=== PATIENT | male | born 1980 | race Caucasian/White ===

== ENCOUNTER 2020-08-30 07:35 | Outpatient (REF) | payer OTHER, SELFPAY ==
[2020-08-30 11:18] LABS: Alanine Aminotransferase 33 U/L (0-40); Alkaline Phosphatase 54 U/L (39-117); Anion Gap 13 (12-20); Aspartate Amino Transferase 19 U/L (5-37); Bilirubin Total 0.6 mg/dL (0.0-1.0); Blood Urea Nitrogen 16 mg/dL (9-16); Calcium 9.3 mg/dL (8.4-10.2); Carbon Dioxide 28 mmol/L (22-29); Chloride 106 mmol/L (96-108); Cholesterol 176 mg/dL; Estimated Glomerular Filt Rate > 60; Glucose Fasting 112 mg/dL (60-99); HDL Cholesterol 33 mg/dL; LDL Cholesterol Calculated 101 mg/dl; Potassium 4.6 mmol/L (3.3-5.1); Sodium 142 mmol/L (135-145); Total Protein 7.5 g/dL (6.5-8.0); Triglycerides 211 mg/dL
[2020-08-30 11:23] LABS: Creatinine Urine 241.01 mg/dL; Microalbum/Creatinine Ratio Ur 11.2 ug/mg cr
[2020-08-30 11:44] LABS: TSH reflex Free T4 2.41 uIU/mL (0.32-4.0)
== END 2020-08-30 07:36 | disposition home or self-care (01) ==
LOC: HO.WFDLNP 07:35
PROVIDERS: PCP Family Medicine; Visit Provider Family Medicine
DX: Z00.00 Encounter for general adult medical examination without abnormal findings (principal); I10 Essential (primary) hypertension
CPT/HCPCS: 80053; 80061; 82043; 84443

== ENCOUNTER 2024-02-28 15:30 | Outpatient (AMB) | payer OTHER, SELFPAY ==
--- NOTE | 2024-02-28 15:46 | A.OFFPC_ITS ---
Vital Signs 02/28/24 15:48 Height 5 ft 9.69 in Weight 202 lb 2 oz BMI 29.3 BP 140/90 H Blood Pressure Location Lt brachial Position Sitting Respiration 16 Pulse 75 Pulse Source Pulse Oximeter Temp 97.8 F Temp Source Tympanic Pulse Oximetry (%) 98 Oxygen Delivery Method Room Air Intake Visit Reasons: Follow Up, hypertension Intake Note: follow up with HTN Allergies Emycin Allergy (Unknown, Uncoded 06/07/21 15:47) Unknown Medication List - Last Reconciled 02/28/24 by Dillon Menjivar MD metoprolol succinate ER 50 mg PO DAILY 90 days Tobacco use date assessed: 09/28/21 HPI Follow Up, hypertension HPI Details 43 y/o male presents to f/u hypertension . Blood pressure today 140/90. He is on metoprolol 50mg daily. HPI Comments History of Present Illness Details Documentation assistance for Dillon Menjivar MD, was provided by Jorge Andre,? Educational Technician on 02/28/2024 at 4:06 PM EST. I, Dr. Menjivar, have read, observed, and verified documentation. [facility] Surgical History (Updated 06/07/21 @ 15:51 by ISRAEL Cano) History of ankle surgery Family History (Updated 06/07/21 @ 15:50 by ISRAEL Cano) Father No problems noted. Mother No problems noted. Social History Housing: House Alcohol intake: current Alcohol intake frequency: a few times a week Patient Tobacco Use Status: Never used Tobacco e-Cigarette/Vaping Use: Never Used Second Hand Smoke Exposure: No service: No Current occupational status: employed Current occupational exposures/hazards: No Cognitive needs: No Hearing needs: No Vision needs: No Questionnaire Thrive Questionnaire Date Thrive assessed: 02/17/21 SIERRA-7 AMB Questionnaire SIERRA-7 Date SIERRA - 7 assessed: 02/17/21 Source: Developed by Drs. Thien Bryan, Heather Zapata, Simeon Jackson and colleagues, with an educational georgie from [employer] Review of Systems Const Denies chills, Denies fatigue, Denies fever(s), Denies headache(s) and Denies weakness ENT Denies dizziness and Denies headache(s) Card Denies dyspnea Resp Denies cough, Denies dyspnea, Denies wheezing and Denies other (shortness of breath) Musc Denies numbness and Denies tingling Neuro Denies dizziness, Denies headache(s), Denies numbness, Denies tingling and Denies weakness Psych Denies anxiety and Denies depression Endo Denies fatigue Aller/Immun Denies wheezing Physical exam (Primary Care) Vital Signs: Last Vital Signs Temp 97.8 F 02/28/24 15:48 Pulse 75 02/28/24 15:48 Resp 16 02/28/24 15:48 BP 140/90 H 02/28/24 15:48 Pulse Ox 98 02/28/24 15:48 Oxygen Delivery Method Room Air 02/28/24 15:48 BMI result Body Mass Index 29.3 Tobacco/Smoking Status: Tobacco use Status Tobacco use date assessed 09/28/21 02/28/24 15:53 Patient Tobacco Use Status Never used Tobacco 02/28/24 15:53 e-Cigarette/Vaping Use Never Used 02/28/24 15:53 Thrive Assessment: Date of Thrive Assessment Date Thrive assessed 02/17/21 02/28/24 15:53 Const General: well developed; No acute distress Nutritional Appearance: well nourished Orientation/consciousness: patient oriented x3 [facility]: Yes normocephalic and Yes atraumatic Eyes General: appearance normal, both eyes and all related structures Pupils: Equal, round and reactive pupils present EOM: EOMs intact bilaterally Resp Effort & Inspection: normal respiratory effort Auscultation: clear to auscultation bilaterally Cardio Rate: regular rate Rhythm: regular rhythm Heart sounds: S1 normal heart sound present, S2 normal heart sound present, no gallops, no murmurs and no rubs Neuro General: patient oriented x3 and gait normal Cranial nerves: Yes Equal, round and reactive pupils present Psych Affect: normal affect Assessment and Plan Assessment & Plan (1) Essential hypertension: Code(s): I10 - Essential (primary) hypertension Plan: Blood?pressure?still?elevated.??Goal?is?less?than?140/90 Will?increase?metoprolol He?can?take?1?tab let?in?the?morning?and?1/2?tablet?in?the?afternoon?and?he?can?bring?this?up?to?1 ?tablet?b.i.d.?if?still?needing?further?control. He?will?let?me?know?if?higher?doses?are?causing?any?problems Medications: Changed From metoprolol succinate ER 50 mg PO DAILY 90 days 90 tabs 0RF To metoprolol succinate ER 100 mg (2 x 50 mg) PO DAILY 90 days 180 tabs 3RF Coding Level of Care Code Est Pt Level 3 (86189) Diagnoses Essential hypertension I10
[2024-02-28 15:48] VITALS: BP 140/90; PULSE 75; RESP 16; TEMP 36.6; O2SAT 98; BMI 29.3
== END 2024-02-28 16:32 | disposition home or self-care (01) ==
PROVIDERS: PCP Family Medicine; Visit Provider Family Medicine
DX: I10 Essential (primary) hypertension (principal)
CPT/HCPCS: 99213